=== PATIENT | male | born 1955 | race Caucasian/White ===

== ENCOUNTER 2018-12-01 09:15 | Emergency (ER) | payer OTHER | END 2018-12-01 10:16 | disposition home or self-care (01) | LOC: FTE 09:15 | DX: R05 Cough (principal); I10 Essential (primary) hypertension | CPT/HCPCS: 99283; Z7502 ==

== ENCOUNTER 2019-05-19 15:18 | Inpatient (IN) | payer OTHER ==
[2019-05-19 16:12] LABS: ABNORMAL IP MESSAGE 1; HEMATOCRIT 36.6 % (42.0-52.0); HEMOGLOBIN 12.4 g/dl (14.0-18.0); MEAN CORPUSCULAR HEMOGLOBIN 29.9 pg (29.0-33.0); MEAN CORPUSCULAR HGB CONC 33.9 g/dl (32.0-37.0); MEAN CORPUSCULAR VOLUME 88.2 fl (82.0-101.0); MEAN PLATELET VOLUME 12.5 fl (7.4-10.4); PLATELET COUNT 32 10^3/UL (140-415); POSITIVE DIFF @See below; RED BLOOD COUNT 4.15 10^6/ul (4.70-6.10); RED CELL DISTRIBUTION WIDTH 14.3 % (11.5-14.5)
[2019-05-19 16:15] LABS: ADD MAN DIFF? YES
[2019-05-19] MEDS: morphine 2 MG INJ IV ×2 (16:19→22:18)
[2019-05-19] MEDS: ONDANSETRON 4 MG INJ IV (16:19)
[2019-05-19 16:31] LABS: ALANINE AMINOTRANSFERASE 37 IU/L (13-69); ALBUMIN 3.5 g/dl (3.3-4.9); ALBUMIN/GLOBULIN RATIO 1.06; ALKALINE PHOSPHATASE 54 IU/L (42-121); ANION GAP 13 (5-13); ASPARTATE AMINO TRANSFERASE 30 IU/L (15-46); BILIRUBIN,INDIRECT 2.1 mg/dl (0-1.1); BILIRUBIN,TOTAL 2.1 mg/dl (0.2-1.3); BLOOD UREA NITROGEN 13 mg/dl (7-20); CALCIUM 8.8 mg/dl (8.4-10.2); CARBON DIOXIDE 17 mmol/L (21-31); CHLORIDE 107 mmol/L (97-110); CREATININE 0.76 mg/dl (0.61-1.24); Estimated GFR > 60 mL/min (>60); LIPASE 51 U/L (23-300); POTASSIUM 3.6 mmol/L (3.5-5.1); SODIUM 137 mmol/L (135-144); TOTAL PROTEIN 6.8 g/dl (6.1-8.1)
[2019-05-19 16:36] LABS: GLUCOSE 402 mg/dl (70-220)
[2019-05-19] MEDS: IOHEXOL 300MG/ML 150 ML BTL (16:40)
[2019-05-19] MEDS: SOD CHLORIDE 0.9% 100 ML (16:40)
[2019-05-19 16:52] LABS: BAND NEUTROPHILS #M 0.6 10^3/ul (0.0-0.6); BAND NEUTROPHILS % (M) 7 % (0-4); BASOPHILS % (M) 1 % (0-2); LYMPHOCYTES #M 0.9 10^3/ul (0.8-2.9); LYMPHOCYTES % (M) 11 % (15-51); MONOCYTE #M 0.4 10^3/ul (0.3-0.9); MONOCYTES % (M) 5 % (0-11); PLATELET ESTIMATE SIG DECREASED; SEG NEUT #M 6.9 10^3/ul (1.6-7.5); SEGMENTED NEUTROPHILS (M) % 76 % (39-77); SMUDGE%M 5 % (0-0)
[2019-05-19 16:56] LABS: ADD UMIC YES; UR ASCORBIC ACID NEGATIVE (NEGATIVE); UR BILIRUBIN (Dip) NEGATIVE (NEGATIVE); UR BLOOD (Dip) 2+ mg/dL (NEGATIVE); UR CLARITY CLEAR (CLEAR); UR COLOR YELLOW (YELLOW); UR GLUCOSE (Dip) 3+ mg/dL (NEGATIVE); UR KETONES (Dip) NEGATIVE (NEGATIVE); UR LEUKOCYTE ESTERASE (Dip) NEGATIVE Leu/ul (NEGATIVE); UR MUCUS FEW /HPF (NONE SEEN); UR NITRITE (Dip) NEGATIVE (NEGATIVE); UR RBC 2 /HPF (0-5); UR SPECIFIC GRAVITY (Dip) 1.036 (1.003-1.030); UR TOTAL PROTEIN (Dip) NEGATIVE (NEGATIVE); UR UROBILINOGEN (Dip) NEGATIVE (NEGATIVE); UR WBC 0 /HPF (0-5)
[2019-05-19] MEDS: SOD CHLORIDE 0.9% 790 ML IV (17:07)
[2019-05-19 17:15] LABS: MAGNESIUM 1.4 mg/dl (1.7-2.5)
[2019-05-19 17:15] LABS: PHOSPHORUS 3.7 mg/dl (2.5-4.9)
[2019-05-19] MEDS ORDERED: ONDANSETRON 4 MG INJ IV (19:00)
[2019-05-19] MEDS ORDERED: ACETAMINOPHEN 325 MG TAB PO ×2 (19:00→20:00)
[2019-05-19] MEDS ORDERED: NACL 0.9% 3 ML SYG IV (20:00)
[2019-05-19] MEDS ORDERED: GLUCOSE GEL 15 GRAM TUBE BUCCAL (20:00)
[2019-05-19] MEDS ORDERED: GLUCAGON 1 MG INJ IM (20:00)
[2019-05-19] MEDS ORDERED: GLUCOSE GEL 15 GRAM TUBE PO ×2 (20:00)
[2019-05-19] MEDS ORDERED: DEXTROSE 50% 50 ML SYRINGE IV ×2 (20:00)
[2019-05-19] MEDS: FAMOTIDINE 20 MG INJ IV (22:44)
[2019-05-20] MEDS: ACCU-CHEK XX (02:00)
[2019-05-20 06:34] LABS: ADD MAN DIFF? NO
[2019-05-20 06:41] LABS: WHITE BLOOD COUNT 4.4 10^3/ul (4.8-10.8)
[2019-05-20 06:41] LABS: ABNORMAL IP MESSAGE 1; BASOPHILS % 0.2 % (0.0-2.0); EOSINOPHILS # 0.1 10^3/ul (0.0-0.5); EOSINOPHILS % 1.8 % (0.0-7.0); HEMATOCRIT 34.6 % (42.0-52.0); HEMOGLOBIN 11.1 g/dl (14.0-18.0); LYMPHOCYTES # 0.7 10^3/ul (0.8-2.9); LYMPHOCYTES % 16.2 % (15.0-51.0); MEAN CORPUSCULAR HEMOGLOBIN 28.9 pg (29.0-33.0); MEAN CORPUSCULAR HGB CONC 32.1 g/dl (32.0-37.0); MEAN CORPUSCULAR VOLUME 90.1 fl (82.0-101.0); MEAN PLATELET VOLUME 13.5 fl (7.4-10.4); MONOCYTE # 0.3 10^3/ul (0.3-0.9); MONOCYTES % 6.4 % (0.0-11.0); NEUTROPHIL # 3.3 10^3/ul (1.6-7.5); NEUTROPHILS % 74.9 % (39.0-77.0); POSITIVE DIFF @See below; RED BLOOD COUNT 3.84 10^6/ul (4.70-6.10); RED CELL DISTRIBUTION WIDTH 14.5 % (11.5-14.5)
[2019-05-20 06:49] LABS: PLATELET COUNT 30 10^3/UL (140-415)
[2019-05-20 07:17] LABS: HEMOGLOBIN A1C 5.8 % (0-5.9)
[2019-05-20 07:27] LABS: ALANINE AMINOTRANSFERASE 38 IU/L (13-69); ALBUMIN 2.7 g/dl (3.3-4.9); ALKALINE PHOSPHATASE 47 IU/L (42-121); ANION GAP 7 (5-13); ASPARTATE AMINO TRANSFERASE 23 IU/L (15-46); BILIRUBIN,INDIRECT 2.2 mg/dl (0-1.1); BILIRUBIN,TOTAL 2.2 mg/dl (0.2-1.3); BLOOD UREA NITROGEN 14 mg/dl (7-20); CALCIUM 7.9 mg/dl (8.4-10.2); CARBON DIOXIDE 22 mmol/L (21-31); CHLORIDE 110 mmol/L (97-110); CREATININE 0.71 mg/dl (0.61-1.24); Estimated GFR > 60 mL/min (>60); GLUCOSE 152 mg/dl (70-220); POTASSIUM 3.7 mmol/L (3.5-5.1); SODIUM 139 mmol/L (135-144); TOTAL PROTEIN 5.7 g/dl (6.1-8.1)
[2019-05-20] MEDS: INSULIN ASPART [NOVOLOG] 3 ML PEN SC ×3 (08:43→17:55)
[2019-05-20] MEDS: ENOXAPARIN 30 MG/0.3 ML SYG SC (09:00)
[2019-05-20] MEDS: ONDANSETRON 4 MG INJ IV (09:02)
[2019-05-20] MEDS: morphine 2 MG INJ IV ×2 (09:02→14:54)
[2019-05-20] MEDS: FAMOTIDINE 20 MG INJ IV ×2 (09:04→21:16)
[2019-05-20] MEDS: SUCRALFATE 1 GM TAB PO ×2 (18:00→21:16)
[2019-05-20] MEDS: FUROSEMIDE 20 MG TAB PO (18:00)
[2019-05-20] MEDS: SPIRONOLACTONE 50 MG TAB PO (18:00)
[2019-05-21] MEDS: ACCU-CHEK XX (02:00)
[2019-05-21 06:27] LABS: ADD MAN DIFF? NO
[2019-05-21 06:38] LABS: PLATELET COUNT 31 10^3/UL (140-415)
[2019-05-21 06:43] LABS: ABNORMAL IP MESSAGE 1; BASOPHILS % 0.4 % (0.0-2.0); EOSINOPHILS # 0.1 10^3/ul (0.0-0.5); EOSINOPHILS % 5.1 % (0.0-7.0); HEMATOCRIT 34.6 % (42.0-52.0); HEMOGLOBIN 11.6 g/dl (14.0-18.0); LYMPHOCYTES # 0.6 10^3/ul (0.8-2.9); LYMPHOCYTES % 22.6 % (15.0-51.0); MEAN CORPUSCULAR HEMOGLOBIN 30.1 pg (29.0-33.0); MEAN CORPUSCULAR HGB CONC 33.5 g/dl (32.0-37.0); MEAN CORPUSCULAR VOLUME 89.6 fl (82.0-101.0); MEAN PLATELET VOLUME 12.2 fl (7.4-10.4); MONOCYTE # 0.2 10^3/ul (0.3-0.9); MONOCYTES % 6.9 % (0.0-11.0); NEUTROPHIL # 1.8 10^3/ul (1.6-7.5); NEUTROPHILS % 64.6 % (39.0-77.0); POSITIVE DIFF @See below; RED BLOOD COUNT 3.86 10^6/ul (4.70-6.10); RED CELL DISTRIBUTION WIDTH 13.9 % (11.5-14.5)
[2019-05-21 06:43] LABS: WHITE BLOOD COUNT 2.7 10^3/ul (4.8-10.8)
[2019-05-21 06:54] LABS: INR 1.33; PROTIME 16.6 Sec (11.9-14.9); PT RATIO 1.3
[2019-05-21 06:55] LABS: PARTIAL THROMBOPLASTIN TIME 35.7 Sec (23.0-35.0); THROMBIN TIME 14.7 SEC (13.8-19.1)
[2019-05-21 07:08] LABS: ALANINE AMINOTRANSFERASE 40 IU/L (13-69); ALBUMIN 2.7 g/dl (3.3-4.9); ALBUMIN/GLOBULIN RATIO 0.87; ALKALINE PHOSPHATASE 50 IU/L (42-121); ANION GAP 7 (5-13); ASPARTATE AMINO TRANSFERASE 23 IU/L (15-46); BILIRUBIN,INDIRECT 1.1 mg/dl (0-1.1); BILIRUBIN,TOTAL 1.1 mg/dl (0.2-1.3); BLOOD UREA NITROGEN 12 mg/dl (7-20); CALCIUM 8.2 mg/dl (8.4-10.2); CARBON DIOXIDE 22 mmol/L (21-31); CHLORIDE 107 mmol/L (97-110); CREATININE 0.74 mg/dl (0.61-1.24); Estimated GFR > 60 mL/min (>60); GLUCOSE 179 mg/dl (70-220); POTASSIUM 3.6 mmol/L (3.5-5.1); SODIUM 136 mmol/L (135-144); TOTAL PROTEIN 5.8 g/dl (6.1-8.1)
[2019-05-21 07:42] LABS: PLATELET COUNT 28 10^3/UL (140-415)
[2019-05-21] MEDS: morphine 2 MG INJ IV ×3 (08:52→18:13)
[2019-05-21] MEDS: FAMOTIDINE 20 MG INJ IV ×2 (08:52→20:35)
[2019-05-21] MEDS: SPIRONOLACTONE 50 MG TAB PO (08:53)
[2019-05-21] MEDS: SUCRALFATE 1 GM TAB PO ×4 (08:53→20:34)
[2019-05-21] MEDS: ATENOLOL 25 MG TAB PO (08:53)
[2019-05-21] MEDS: FUROSEMIDE 20 MG TAB PO (08:54)
[2019-05-21] MEDS: INSULIN ASPART [NOVOLOG] 3 ML PEN SC ×3 (09:00→17:46)
[2019-05-21] MEDS: PANTOPRAZOLE (EC) 40 MG TAB PO (09:11)
[2019-05-21 12:30] LABS: RETICULOCYTE COUNT # 0.055 X10^6 (0.020-0.110); RETICULOCYTE COUNT % 1.4 % (0.5-1.5)
[2019-05-21 12:30] LABS: RETICULOCYTE RBC 4.02
[2019-05-21 12:46] LABS: AMMONIA 54 umol/l (9-30)
[2019-05-21 13:23] LABS: FERRITIN 76.5 ng/ml (11.1-264.0)
[2019-05-21 13:53] LABS: FOLATE 12.7 ng/ml (2.8-20.0)
[2019-05-21 14:54] LABS: ALPHA FETOPROTEIN 1.63 IU/L (0.00-7.21)
[2019-05-22] MEDS: ACCU-CHEK XX (02:00)
[2019-05-22] MEDS: SUCRALFATE 1 GM TAB PO ×2 (06:10→11:32)
[2019-05-22] MEDS: PANTOPRAZOLE (EC) 40 MG TAB PO (06:10)
[2019-05-22 07:18] LABS: ADD MAN DIFF? NO
[2019-05-22 07:19] LABS: ABNORMAL IP MESSAGE 1; BASOPHILS % 0.4 % (0.0-2.0); EOSINOPHILS # 0.1 10^3/ul (0.0-0.5); EOSINOPHILS % 4.6 % (0.0-7.0); HEMATOCRIT 33.7 % (42.0-52.0); HEMOGLOBIN 11.5 g/dl (14.0-18.0); LYMPHOCYTES # 0.6 10^3/ul (0.8-2.9); LYMPHOCYTES % 21.8 % (15.0-51.0); MEAN CORPUSCULAR HEMOGLOBIN 29.6 pg (29.0-33.0); MEAN CORPUSCULAR HGB CONC 34.1 g/dl (32.0-37.0); MEAN CORPUSCULAR VOLUME 86.9 fl (82.0-101.0); MEAN PLATELET VOLUME 13.5 fl (7.4-10.4); MONOCYTE # 0.2 10^3/ul (0.3-0.9); MONOCYTES % 8.2 % (0.0-11.0); NEUTROPHIL # 1.8 10^3/ul (1.6-7.5); NEUTROPHILS % 64.6 % (39.0-77.0); POSITIVE DIFF @See below; RED BLOOD COUNT 3.88 10^6/ul (4.70-6.10); RED CELL DISTRIBUTION WIDTH 13.9 % (11.5-14.5)
[2019-05-22 07:19] LABS: WHITE BLOOD COUNT 2.8 10^3/ul (4.8-10.8)
[2019-05-22 07:25] LABS: PLATELET COUNT 41 10^3/UL (140-415)
[2019-05-22] MEDS: morphine 2 MG INJ IV (07:52)
[2019-05-22 07:53] LABS: ALANINE AMINOTRANSFERASE 33 IU/L (13-69); ALBUMIN 2.8 g/dl (3.3-4.9); ALBUMIN/GLOBULIN RATIO 0.87; ALKALINE PHOSPHATASE 47 IU/L (42-121); ANION GAP 7 (5-13); ASPARTATE AMINO TRANSFERASE 26 IU/L (15-46); BILIRUBIN,INDIRECT 0.9 mg/dl (0-1.1); BILIRUBIN,TOTAL 0.9 mg/dl (0.2-1.3); BLOOD UREA NITROGEN 13 mg/dl (7-20); CALCIUM 8.4 mg/dl (8.4-10.2); CARBON DIOXIDE 22 mmol/L (21-31); CHLORIDE 108 mmol/L (97-110); CREATININE 0.76 mg/dl (0.61-1.24); Estimated GFR > 60 mL/min (>60); GLUCOSE 172 mg/dl (70-220); POTASSIUM 4.1 mmol/L (3.5-5.1); SODIUM 137 mmol/L (135-144)
[2019-05-22] MEDS: INSULIN ASPART [NOVOLOG] 3 ML PEN SC ×3 (08:02→18:19)
[2019-05-22] MEDS: SPIRONOLACTONE 50 MG TAB PO (09:01)
[2019-05-22] MEDS: FUROSEMIDE 20 MG TAB PO (09:01)
[2019-05-22] MEDS: FAMOTIDINE 20 MG INJ IV (09:01)
[2019-05-22] MEDS: ATENOLOL 25 MG TAB PO (09:02)
[2019-05-22] MEDS: HYDROCODONE/APAP (5/325) TAB PO ×2 (11:35→18:10)
[2019-05-22] MEDS: PROPRANOLOL 20 MG TAB PO (21:15)
[2019-05-23] MEDS: ACCU-CHEK XX (02:00)
[2019-05-23] MEDS: PANTOPRAZOLE (EC) 40 MG TAB PO (06:15)
[2019-05-23 06:39] LABS: ADD MAN DIFF? NO
[2019-05-23 06:44] LABS: WHITE BLOOD COUNT 2.9 10^3/ul (4.8-10.8)
[2019-05-23 06:44] LABS: ABNORMAL IP MESSAGE 1; BASOPHILS % 0.3 % (0.0-2.0); EOSINOPHILS # 0.2 10^3/ul (0.0-0.5); EOSINOPHILS % 5.5 % (0.0-7.0); HEMOGLOBIN 11.8 g/dl (14.0-18.0); LYMPHOCYTES # 0.7 10^3/ul (0.8-2.9); LYMPHOCYTES % 24.7 % (15.0-51.0); MEAN CORPUSCULAR HEMOGLOBIN 30.1 pg (29.0-33.0); MEAN CORPUSCULAR HGB CONC 34.7 g/dl (32.0-37.0); MEAN CORPUSCULAR VOLUME 86.7 fl (82.0-101.0); MEAN PLATELET VOLUME 12.4 fl (7.4-10.4); MONOCYTE # 0.2 10^3/ul (0.3-0.9); MONOCYTES % 8.2 % (0.0-11.0); NEUTROPHIL # 1.8 10^3/ul (1.6-7.5); NEUTROPHILS % 60.6 % (39.0-77.0); PLATELET COUNT 49 10^3/UL (140-415); POSITIVE DIFF @See below; RED BLOOD COUNT 3.92 10^6/ul (4.70-6.10); RED CELL DISTRIBUTION WIDTH 13.6 % (11.5-14.5)
[2019-05-23 07:02] LABS: ANION GAP 7 (5-13); BLOOD UREA NITROGEN 15 mg/dl (7-20); CALCIUM 8.5 mg/dl (8.4-10.2); CARBON DIOXIDE 23 mmol/L (21-31); CHLORIDE 107 mmol/L (97-110); CREATININE 0.78 mg/dl (0.61-1.24); Estimated GFR > 60 mL/min (>60); GLUCOSE 122 mg/dl (70-220); SODIUM 137 mmol/L (135-144)
[2019-05-23] MEDS: INSULIN ASPART [NOVOLOG] 3 ML PEN SC ×3 (07:55→17:10)
[2019-05-23] MEDS: FUROSEMIDE 20 MG TAB PO (08:26)
[2019-05-23] MEDS: PROPRANOLOL 20 MG TAB PO ×2 (08:28→21:48)
[2019-05-23] MEDS: SPIRONOLACTONE 50 MG TAB PO (08:28)
[2019-05-23] MEDS: HYDROCODONE/APAP (5/325) TAB PO (17:00)
[2019-05-24] MEDS: ACCU-CHEK XX (02:00)
[2019-05-24 06:43] LABS: ADD MAN DIFF? NO
[2019-05-24 06:50] LABS: WHITE BLOOD COUNT 4.2 10^3/ul (4.8-10.8)
[2019-05-24 06:50] LABS: ABNORMAL IP MESSAGE 1; BASOPHILS % 0.2 % (0.0-2.0); EOSINOPHILS # 0.2 10^3/ul (0.0-0.5); EOSINOPHILS % 5.3 % (0.0-7.0); HEMATOCRIT 37.8 % (42.0-52.0); HEMOGLOBIN 12.8 g/dl (14.0-18.0); LYMPHOCYTES # 0.9 10^3/ul (0.8-2.9); LYMPHOCYTES % 22.2 % (15.0-51.0); MEAN CORPUSCULAR HEMOGLOBIN 29.5 pg (29.0-33.0); MEAN CORPUSCULAR HGB CONC 33.9 g/dl (32.0-37.0); MEAN CORPUSCULAR VOLUME 87.1 fl (82.0-101.0); MEAN PLATELET VOLUME 12.3 fl (7.4-10.4); MONOCYTE # 0.3 10^3/ul (0.3-0.9); NEUTROPHIL # 2.6 10^3/ul (1.6-7.5); NEUTROPHILS % 63.6 % (39.0-77.0); PLATELET COUNT 55 10^3/UL (140-415); POSITIVE DIFF @See below; RED BLOOD COUNT 4.34 10^6/ul (4.70-6.10); RED CELL DISTRIBUTION WIDTH 13.8 % (11.5-14.5)
[2019-05-24 07:10] LABS: ANION GAP 8 (5-13); BLOOD UREA NITROGEN 16 mg/dl (7-20); CALCIUM 8.9 mg/dl (8.4-10.2); CARBON DIOXIDE 21 mmol/L (21-31); CHLORIDE 108 mmol/L (97-110); CREATININE 0.73 mg/dl (0.61-1.24); Estimated GFR > 60 mL/min (>60); GLUCOSE 111 mg/dl (70-220); SODIUM 137 mmol/L (135-144)
[2019-05-24] MEDS: PANTOPRAZOLE (EC) 40 MG TAB PO (07:25)
[2019-05-24] MEDS: INSULIN ASPART [NOVOLOG] 3 ML PEN SC ×4 (07:55→17:58)
[2019-05-24] MEDS: SPIRONOLACTONE 50 MG TAB PO (08:03)
[2019-05-24] MEDS: PROPRANOLOL 20 MG TAB PO ×2 (08:03→21:32)
[2019-05-24] MEDS: morphine 2 MG INJ IV (08:04)
[2019-05-24] MEDS: FUROSEMIDE 20 MG TAB PO (08:04)
[2019-05-24] MEDS: CIPROFLOXACIN 400MG/D5W 200 ML (12:19)
[2019-05-24] MEDS: PROPOFOL 20 ML ×2 (12:23→12:39)
[2019-05-25] MEDS: ACCU-CHEK XX (02:00)
[2019-05-25 06:24] LABS: ADD MAN DIFF? NO
[2019-05-25] MEDS: PANTOPRAZOLE (EC) 40 MG TAB PO (06:25)
[2019-05-25 06:28] LABS: WHITE BLOOD COUNT 4.9 10^3/ul (4.8-10.8)
[2019-05-25 06:28] LABS: ABNORMAL IP MESSAGE 1; BASOPHILS % 0.2 % (0.0-2.0); EOSINOPHILS # 0.2 10^3/ul (0.0-0.5); EOSINOPHILS % 4.7 % (0.0-7.0); HEMATOCRIT 37.9 % (42.0-52.0); HEMOGLOBIN 12.9 g/dl (14.0-18.0); LYMPHOCYTES # 1.2 10^3/ul (0.8-2.9); LYMPHOCYTES % 24.3 % (15.0-51.0); MEAN CORPUSCULAR HEMOGLOBIN 29.9 pg (29.0-33.0); MEAN CORPUSCULAR VOLUME 87.7 fl (82.0-101.0); MEAN PLATELET VOLUME 11.8 fl (7.4-10.4); MONOCYTE # 0.4 10^3/ul (0.3-0.9); MONOCYTES % 7.6 % (0.0-11.0); NEUTROPHIL # 3.1 10^3/ul (1.6-7.5); PLATELET COUNT 55 10^3/UL (140-415); POSITIVE DIFF @See below; RED BLOOD COUNT 4.32 10^6/ul (4.70-6.10); RED CELL DISTRIBUTION WIDTH 13.7 % (11.5-14.5)
[2019-05-25] MEDS: HYDROCODONE/APAP (5/325) TAB PO ×2 (06:28→19:59)
[2019-05-25 07:28] LABS: ANION GAP 8 (5-13); BLOOD UREA NITROGEN 16 mg/dl (7-20); CALCIUM 8.8 mg/dl (8.4-10.2); CARBON DIOXIDE 22 mmol/L (21-31); CHLORIDE 109 mmol/L (97-110); CREATININE 0.68 mg/dl (0.61-1.24); Estimated GFR > 60 mL/min (>60); GLUCOSE 102 mg/dl (70-220); POTASSIUM 4.3 mmol/L (3.5-5.1); SODIUM 139 mmol/L (135-144)
[2019-05-25] MEDS: INSULIN ASPART [NOVOLOG] 3 ML PEN SC ×3 (07:44→17:11)
[2019-05-25] MEDS: SPIRONOLACTONE 50 MG TAB PO (08:41)
[2019-05-25] MEDS: PROPRANOLOL 20 MG TAB PO ×2 (08:41→21:06)
[2019-05-25] MEDS: FUROSEMIDE 20 MG TAB PO (08:41)
[2019-05-25 12:47] LABS: OCCULT BLOOD STOOL NEGATIVE (NEGATIVE)
[2019-05-26] MEDS: ACCU-CHEK XX (01:15)
[2019-05-26 06:30] LABS: AMMONIA 77 umol/l (9-30)
[2019-05-26] MEDS: INSULIN ASPART [NOVOLOG] 3 ML PEN SC ×3 (07:39→17:14)
[2019-05-26] MEDS: PANTOPRAZOLE (EC) 40 MG TAB PO (07:51)
[2019-05-26] MEDS: FUROSEMIDE 20 MG TAB PO (08:07)
[2019-05-26] MEDS: SPIRONOLACTONE 50 MG TAB PO (08:07)
[2019-05-26] MEDS: PROPRANOLOL 20 MG TAB PO ×2 (08:08→21:16)
[2019-05-26] MEDS: HYDROCODONE/APAP (5/325) TAB PO (21:16)
[2019-05-27] MEDS: ACCU-CHEK XX (02:00)
[2019-05-27 06:11] LABS: ADD MAN DIFF? NO
[2019-05-27 06:26] LABS: WHITE BLOOD COUNT 4.1 10^3/ul (4.8-10.8)
[2019-05-27 06:26] LABS: ABNORMAL IP MESSAGE 1; BASOPHILS % 0.5 % (0.0-2.0); EOSINOPHILS # 0.2 10^3/ul (0.0-0.5); EOSINOPHILS % 4.9 % (0.0-7.0); HEMATOCRIT 37.8 % (42.0-52.0); HEMOGLOBIN 12.9 g/dl (14.0-18.0); LYMPHOCYTES # 1.1 10^3/ul (0.8-2.9); LYMPHOCYTES % 27.4 % (15.0-51.0); MEAN CORPUSCULAR HEMOGLOBIN 29.6 pg (29.0-33.0); MEAN CORPUSCULAR HGB CONC 34.1 g/dl (32.0-37.0); MEAN CORPUSCULAR VOLUME 86.7 fl (82.0-101.0); MEAN PLATELET VOLUME 12.5 fl (7.4-10.4); MONOCYTE # 0.3 10^3/ul (0.3-0.9); MONOCYTES % 7.6 % (0.0-11.0); NEUTROPHIL # 2.4 10^3/ul (1.6-7.5); NEUTROPHILS % 59.4 % (39.0-77.0); PLATELET COUNT 58 10^3/UL (140-415); POSITIVE DIFF @See below; RED BLOOD COUNT 4.36 10^6/ul (4.70-6.10); RED CELL DISTRIBUTION WIDTH 13.9 % (11.5-14.5)
[2019-05-27 06:47] LABS: ANION GAP 5 (5-13); BLOOD UREA NITROGEN 16 mg/dl (7-20); CALCIUM 8.5 mg/dl (8.4-10.2); CARBON DIOXIDE 23 mmol/L (21-31); CHLORIDE 108 mmol/L (97-110); Estimated GFR > 60 mL/min (>60); GLUCOSE 109 mg/dl (70-220); SODIUM 136 mmol/L (135-144)
[2019-05-27] MEDS: PANTOPRAZOLE (EC) 40 MG TAB PO (08:02)
[2019-05-27] MEDS: FUROSEMIDE 20 MG TAB PO (08:16)
[2019-05-27] MEDS: SPIRONOLACTONE 50 MG TAB PO (08:16)
[2019-05-27] MEDS: PROPRANOLOL 20 MG TAB PO ×2 (08:17→22:07)
[2019-05-27] MEDS: INSULIN ASPART [NOVOLOG] 3 ML PEN SC ×3 (08:43→17:46)
[2019-05-27] MEDS: LACTULOSE 30ML CUP PO ×2 (15:12→22:08)
[2019-05-28] MEDS: ACCU-CHEK XX (02:00)
[2019-05-28] MEDS: LACTULOSE 30ML CUP PO ×2 (07:01→13:26)
[2019-05-28] MEDS: PANTOPRAZOLE (EC) 40 MG TAB PO (07:02)
[2019-05-28 07:22] LABS: AMMONIA 32 umol/l (9-30)
[2019-05-28] MEDS: INSULIN ASPART [NOVOLOG] 3 ML PEN SC ×3 (08:11→17:25)
[2019-05-28] MEDS: PROPRANOLOL 20 MG TAB PO (08:24)
[2019-05-28] MEDS: FUROSEMIDE 20 MG TAB PO (08:24)
[2019-05-28] MEDS: SPIRONOLACTONE 50 MG TAB PO (08:25)
== END 2019-05-28 18:48 | disposition home or self-care (01) | DRG 432 ==
LOC: E/R 15:18 → TEL 18:50
PROVIDERS: Internal Medicine
PROC: 06L38CZ Occlusion of Esophageal Vein with Extraluminal Device, Via Natural or Artificial Opening Endoscopic (ICD-10-PCS; principal; 2019-05-24 11:55)
DX: K70.31 Alcoholic cirrhosis of liver with ascites (principal); I81 Portal vein thrombosis; K29.71 Gastritis, unspecified, with bleeding; K76.6 Portal hypertension; D61.818 Other pancytopenia; I85.10 Secondary esophageal varices without bleeding; K31.7 Polyp of stomach and duodenum; D64.9 Anemia, unspecified; I10 Essential (primary) hypertension; K40.90 Unilateral inguinal hernia, without obstruction or gangrene, not specified as recurrent; D69.6 Thrombocytopenia, unspecified; K70.40 Alcoholic hepatic failure without coma; F10.10 Alcohol abuse, uncomplicated
CPT/HCPCS: 36415; 71045; 74177; 76705; 80048; 80053; 81001; 82105; 82140; 82270; 82607; 82728; 82746; 82962; 83036; 83690; 83735; 84100; 85025; 85045; 85049; 85610; 85670; 85730; 96374; 96375; 99285-25